=== PATIENT | male | born 1990 | race African-American/Black ===

== ENCOUNTER 2017-01-20 03:30 | Inpatient (IN) | payer MEDICAID, OTHER ==
[~2017-01-20] VITALS: Ht 175.3 cm; Wt 88.9 kg
[2017-01-20] MEDS ORDERED: MAGNESIUM HYDROXIDE SUSP 30 ML CUP PO PRN (06:15)
[2017-01-20] MEDS ORDERED: BENZTROPINE MESYLATE 1 MG TAB PO PRN (06:15)
[2017-01-20] MEDS ORDERED: ACETAMINOPHEN 325 MG TAB PO PRN (06:15)
[2017-01-20] MEDS ORDERED: BENZTROPINE MESYLATE 2 MG/2 ML VIAL IM PRN (06:15)
[2017-01-20] MEDS ORDERED: diphenhydrAMINE HCL 50 MG CAP PO PRN (06:15)
[2017-01-20] MEDS ORDERED: ALUMINUM/MAGNESIUM/SIMETH 30 ML CUP PO PRN (06:15)
[2017-01-20] MEDS ORDERED: LORazepam 2 MG/ML VIAL IM PRN (06:15)
[2017-01-20 06:24] VITALS: BP 135/82; PULSE 54; RESP 18; TEMP 97.6; O2SAT 100
[2017-01-20 08:49] LABS: AUTOMATED NEUTROPHIL # 1.4 TH/MM3 (1.8-7.7); BASOPHIL # 0.1 TH/MM3 (0-0.2); BASOPHIL % 1.4 % (0.0-2.0); EOSINOPHIL # 0.2 TH/MM3 (0-0.4); EOSINOPHIL % 5.8 % (0.0-4.0); HEMATOCRIT 40.9 % (39.0-51.0); HEMO FLAGS DIFF FINAL; LYMPH % 45.6 % (9.0-44.0); LYMPHOCYTE # 1.9 TH/MM3 (1.0-4.8); MEAN CELL VOLUME 77.2 FL (80.0-100.0); MEAN CORPUSCULAR HEMOGLOBIN 25.7 PG (27.0-34.0); MEAN CORPUSCULAR HGB CONC 33.2 % (32.0-36.0); NEUT % 32.2 % (16.0-70.0); PLATELET COUNT 241 TH/MM3 (150-450); RED BLOOD COUNT 5.29 MIL/MM3 (4.50-5.90); RED CELL DISTRIBUTION WIDTH 13.4 % (11.6-17.2); WHITE BLOOD COUNT 4.3 TH/MM3 (4.0-11.0)
[2017-01-20] MEDS: NICOTINE 21 MG/24 HR PATCH T-DERMAL SCH (09:00)
[2017-01-20] MEDS: REMOVE OLD NICOTINE T-DERMAL SCH (09:00)
[2017-01-20 09:10] LABS: ANION GAP 7 MEQ/L (5-15); AST (GOT) 20 U/L (15-37); BICARBONATE 27.8 MEQ/L (21.0-32.0); BLOOD UREA NITROGEN 8 MG/DL (7-18); CHLORIDE 105 MEQ/L (98-107); GLOMERULAR FILTRATION RATE 101 ML/MIN (>89); POTASSIUM 4.1 MEQ/L (3.5-5.1); SODIUM (NA) 140 MEQ/L (136-145)
[2017-01-20 09:21] LABS: ALKALINE PHOSPHATASE 47 U/L (45-117); ALT (GPT) 26 U/L (12-78); CREATINE KINASE 624 U/L (39-308); HDL CHOLESTEROL 32.2 MG/DL (40.0-60.0); LDL CHOLESTEROL 116 MG/DL (0-99); TOTAL BILIRUBIN ADULT 0.8 MG/DL (0.2-1.0)
[2017-01-20 09:36] LABS: CKMB 3.1 NG/ML (0.5-3.6)
--- NOTE | 2017-01-20 10:17 | HHI.HP ---
Provisional Diagnosis Admission Date Jan 20, 2017 at 03:30 [place]. Major Depression, single episode, severe Certification of Person's Competence To Provide Express and Informed Consent I have personally examined Piero Magaña , a person being served at [facility] on, Jan 20, 2017 10:04. Express and informed consent means consent voluntarily given in writing, by a competent person, after sufficient explanation and disclosure of the subject matter involved to enable the person to make a knowing and willful decision without any element of force, fraud, deceit, duress, or other form of constraint or coercion. This person is 18 years of age or older, is not now known to be incompetent to consent to treatment with a guardian advocate, and does not have a health care surrogate or proxy currently making medical treatment decisions. I have found this person to be one of the following: [x] Competent to provide express and informed consent, as defined above, for voluntary admission to this facility and is competent to provide express and informed consent for treatment. He/she has the consistent capacity to make well reasoned, willful, and knowing decisions concerning his or her medical or mental health treatment. The person fully and consistently understands the purpose of the admission for examination/placement and is fully capable of personally exercising all rights assured [place] Incompetent to provide express and informed consent to voluntary admission, and this is incompetent to provide express and informed consent to treatment. The person must be transferred to involuntary status and a petition for a guardian advocate filed with the Circuit Court. [] Refusing to provide express and informed consent to voluntary admission but is competent to provide express and informed consent for treatment. The person must be discharged or transferred to involuntary status. Form shall be completed within 24 hours of a person's arrival at the receiving facility and filed in the clinical record of each person: 1. Admitted on a voluntary basis 2. Permitted to provide express and informed consent to his/her own treatment 3. Allowed to transfer from involuntary to voluntary status 4. Prior to permitting a person to consent to his or her own treatment after having been previously found incompetent to consent to treatment. History of Present Illness Capacity: Has Capacity HPI This is a 26-year-old male admitted last evening for suicidal plans and threats to stab himself with a knife. Apparently he and his have been having marital issues for months and she is now saying she does not want to be with him. The patient therefore threatened to stab himself with a knife. Symptoms of depression include depressed mood, anxiety, social withdrawal, irritability, diminished self-esteem, low energy, suicidal thinking and planning, sleep disturbance, etc. Current stressors include financial stress. The patient works part-time at [employer]. He receives no benefits. He has a and children and states he is unable to provide for their housing and food adequately. He also reports an increasingly acrimonious relationship with his . Although the patient served in the , he is not [place] service connected. This is another source of his anxiety and depression. He has therefore little or no resources for treatment. Review of Systems ROS Limitations: Clinical Condition Except as stated in HPI: all other systems reviewed are Neg Past Psych History Psychological trauma history Patient carries a diagnosis of posttraumatic stress disorder according to him. However he is unable to provide a history of trauma that is consistent with this diagnosis. He does also report a history of depression and anxiety while he was in the . Violence risk - others (6 mos) Minimal. Violence risk - self (6 mos) The patient states he does not wish to harm himself at this time but has thought about suicide repeatedly over the last several days. Substance Abuse History Drugs/Alcohol past 12 months Patient denies any alcohol or drug abuse. He states he may have one or 2 beers on occasion but does not drink daily or even weekly. Denies drug use. Past Family Social History Coded Allergies: No Known Allergies (Unverified , 01/20/17) Past Medical History Denied for systemic illness. No prescription medicines for psychiatric reasons until this admission. Current Medications Medications (Trade) Dose Ordered Sig/Kwadwo Route Start Time Stop Time Status Last Admin (Ativan) 1 mg Q6H PRN PO 01/20/17 06:15 (Ativan Inj) 1 mg Q6H PRN IM 01/20/17 06:15 (Benadryl) 50 mg HS PRN PO 01/20/17 06:15 (Tylenol) 650 mg Q4H PRN PO 01/20/17 06:15 (Milk Of Magnesia Liq) 30 ml DAILY PRN PO 01/20/17 06:15 (Mag-Al Plus Susp Liq) 30 ml Q6H PRN PO 01/20/17 06:15 (Habitrol 21 Mg Patch.24 Hr) 1 patch DAILY T-DERMAL 01/20/17 09:00 (Cogentin) 1 mg Q12H PRN PO 01/20/17 06:15 (Cogentin Inj) 1 mg Q12H PRN IM 01/20/17 06:15 Miscellaneous Information 1 DAILY T-DERMAL 01/20/17 09:00 Family History Positive for depression and anxiety in his mother. Social History Patient came with his family to this area in the last year because his knows people. Patient claims he has no relationships here and that his family lives in [place]. As stated above, he works part-time at [employer] but receives no benefits. Patient's Strengths (min. 2) Verbal and resilient. Physical Exam GENERAL: SKIN: Warm and dry. HEAD: Normocephalic. EYES: No scleral icterus. No injection or drainage. NECK: Supple, trachea midline. No JVD or lymphadenopathy. CARDIOVASCULAR: Regular rate and rhythm without murmurs, gallops, or rubs. RESPIRATORY: Breath sounds equal bilaterally. No accessory muscle use. GASTROINTESTINAL: Abdomen soft, non-tender, nondistended. MUSCULOSKELETAL: No cyanosis, or edema. BACK: Nontender without obvious deformity. No CVA tenderness. Vital Signs Vital Signs Date Time Temp Pulse Resp B/P Pulse Ox O2 Delivery O2 Flow Rate FiO2 01/20/17 06:24 97.6 54 18 135/82 100 Mental Status Examination Speech: Unremarkable Orientation: x3 Memory: Unremarkable Thought Process: Organized, Goal Directed Thought Content: Unremarkable Fund of Knowledge Adequate Hallucination Type: None Attention and Concentration: Good Suicidal Ideation: Yes Previous Suicide Attempts: No Suicidal Plan Remarks Patient continues to describe various plans for committing suicide if things do not improve. Homicidal Ideation: No Previous Homicide Attempts: No Insight: Fair Judgement: WNL Affect: Anxious Affect if Inappropriate: Blunt Mood: Sad, Anxious Motor Activity: Normal gait Assessment & Plan Problem List: (1) Major depression, single episode ICD Code: F32.9 Assessment & Plan Estimated LOS: 5 days Patient will be observed and evaluated for further signs of depression and suicidality. This physician offered and received permission to start the patient on antidepressant medication. Patient had a bad experience with previous psychiatric medicine while in the . This physician provided informed consent for a trial of Wellbutrin XL. Workup also included an EKG and laboratory testing. We will attempt to engage the patient in individual, family and milieu therapies. We will also investigate his ability to be service connected through the [facility] for follow up. His case was discussed with nursing and social work. Request HC Surrog/Guard Advoc?: No Problem Qualifiers (1) Major depression, single episode: Luciaon Stovall MD Jan 20, 2017 10:17
[2017-01-20] MEDS ORDERED: buPROPion HCL 150 MG EXTENDED RELEASE TAB PO ONE (10:30)
[2017-01-20 15:51] LABS: HEMOGLOBIN A1a 0.9 %; HEMOGLOBIN A1b 0.6 %; HEMOGLOBIN F 0.8 %; HEMOGLOBIN LA1C 1.2 %; HEMOGLOBIN P3 2.4 %
[2017-01-20 19:33] VITALS: BP 121/69; PULSE 71; RESP 16; TEMP 98.3; O2SAT 98
[2017-01-21 05:22] VITALS: BP 111/59; PULSE 49; RESP 18; TEMP 97.9; O2SAT 99
[2017-01-21] MEDS: NICOTINE 21 MG/24 HR PATCH T-DERMAL SCH (09:00)
[2017-01-21] MEDS: REMOVE OLD NICOTINE T-DERMAL SCH (09:00)
--- NOTE | 2017-01-21 13:19 | HHI.PYPN ---
Subjective Remarks Patient was seen and case discussed with nursing. Patient is a bright and intelligent young man. Patient is irritable that he is in the hospital and feels that he is different from the other patients and should be let go. Psychoeducation done about the reason for his inpatient admission though patient still is asking for discharge because of disruption to his work. He admits to suicidal thoughts with plan and intent before arriving here. He says he was pacing his room with a knife in his hand and was thinking of where and ways to cut himself but decided to go to the hospital instead. Patient says this was an impulsive act and he was not planning it. Marital problems remain. Today denies depressed mood. Denies suicidal ideation intent or plan Objective Alert: Yes [place]: Person, Place, Date Mood: Oppositional Affect: Blunted Memory Intact: Immediate Hallucinations: Other (denies) Delusions: No Delusion Type: Other Suicidal: Ideation (denies) Homicidal: Ideation (denies) Insight/Judgement Fair Vitals/IOs Vital Signs Date Time Temp Pulse Resp B/P Pulse Ox O2 Delivery O2 Flow Rate FiO2 01/21/17 05:22 97.9 49 18 111/59 99 Assessment & Plan Problem List: (1) Major depression, single episode ICD Code: F32.9 Assessment & Plan Given recent suicidal ideation intent we will continue admission Justification for Cont. Inpt. Patient will decompensate in a less restrictive setting Request HC Surrog/Guard Advoc?: No Problem Qualifiers (1) Major depression, single episode: Eliud Loyola DO Jan 21, 2017 13:19
[2017-01-21 19:51] VITALS: BP 136/68; PULSE 65; RESP 18; TEMP 98.6; O2SAT 97
[2017-01-22 05:45] VITALS: BP 133/58; PULSE 53; RESP 16; TEMP 98.2; O2SAT 99
[2017-01-22] MEDS: NICOTINE 21 MG/24 HR PATCH T-DERMAL SCH (08:38)
[2017-01-22] MEDS: REMOVE OLD NICOTINE T-DERMAL SCH (08:38)
[2017-01-22] MEDS: LORazepam 1 MG TAB PO PRN ×2 (08:50→22:09)
--- NOTE | 2017-01-22 15:09 | HHI.PYPN ---
Subjective Remarks Patient was seen and case discussed with nursing. Patient continues to be perseverative on discharge. Site is poor he minimizes suicide intent before admission. Stressors include desire to leave and get back to his job provide for his family. Fear of eviction. Patient is concerned that he is no longer on Wellbutrin. Records were reviewed and Wellbutrin is not ordered. Today, patient denies suicidal ideations or plan. Affect is blunted and guarded Objective Alert: Yes [place]: Person, Place, Date Mood: Oppositional Affect: Blunted Memory Intact: Immediate Hallucinations: Other (denies) Delusions: No Delusion Type: Other Suicidal: Ideation (denies) Homicidal: Ideation (denies) Insight/Judgement Poor Vitals/IOs Vital Signs Date Time Temp Pulse Resp B/P Pulse Ox O2 Delivery O2 Flow Rate FiO2 01/22/17 05:45 98.2 53 16 133/58 99 Assessment & Plan Problem List: (1) Major depression, single episode ICD Code: F32.9 Assessment & Plan Restart Wellbutrin XL 150 mg daily Justification for Cont. Inpt. Continue current treatment plan Request HC Surrog/Guard Advoc?: No Problem Qualifiers (1) Major depression, single episode: Eliud Loyola DO Jan 22, 2017 15:09
[2017-01-22] MEDS ORDERED: buPROPion HCL 150 MG EXTENDED RELEASE TAB PO SCH (16:00)
[2017-01-22] MEDS: buPROPion HCL 75 MG TAB PO SCH (17:12)
[2017-01-22 18:28] VITALS: BP 139/74; PULSE 93; RESP 18; TEMP 98.6; O2SAT 98
[2017-01-23] MEDS: buPROPion HCL 75 MG TAB PO SCH (06:13)
[2017-01-23 06:25] VITALS: BP 100/55; PULSE 63; RESP 16; TEMP 97.9; O2SAT 95
[2017-01-23] MEDS: NICOTINE 21 MG/24 HR PATCH T-DERMAL SCH (08:33)
[2017-01-23] MEDS: REMOVE OLD NICOTINE T-DERMAL SCH (08:33)
--- NOTE | 2017-01-23 12:33 | HHI.DS ---
Psychiatry Discharge Summary Inpatient Psychiatric care?: Yes Advance Directive: No Reason Not Provided: Due to Patient Condition Mental Health AdvanceDirective: No Health Care Proxy: No Admission Admission Date Jan 20, 2017 at 03:30 Admission Diagnosis: (1) Major depression, single episode ICD Code: F32.9 Brief History This is a 26-year-old male admitted last evening for suicidal plans and threats to stab himself with a knife. Apparently he and his have been having marital issues for months and she is now saying she does not want to be with him. The patient therefore threatened to stab himself with a knife. Symptoms of depression include depressed mood, anxiety, social withdrawal, irritability, diminished self-esteem, low energy, suicidal thinking and planning, sleep disturbance, etc. Current stressors include financial stress. The patient works part-time at [employer]. He receives no benefits. He has a and children and states he is unable to provide for their housing and food adequately. He also reports an increasingly acrimonious relationship with his . Although the patient served in the , he is not [place] service connected. This is another source of his anxiety and depression. He has therefore little or no resources for treatment. Tobacco Use In Past 30 Days: No Tobacco Past 30 Days Alcohol Use: Monthly or Less Hospital Course This is a 26-year-old male admitted for major depression, single episode. He participated in individual as well as group and milieu therapies. He will be discharged on Wellbutrin 300 mg per day, which was started during the hospitalization. No procedures or significant laboratory results or consults were needed. He will follow up with his outpatient physician at the [facility] , where he will be connected. Results Blood Pressure 100 / 55 Vital Signs Date Time Temp Pulse Resp B/P Pulse Ox O2 Delivery O2 Flow Rate FiO2 01/23/17 06:25 97.9 63 16 100/55 95 Laboratory Results Test 01/20/17 07:19 Hemoglobin A1c 6.0 % (4.3-6.0) Triglycerides Level 90 MG/DL (42-150) Cholesterol Level 166 MG/DL (120-200) LDL Cholesterol 116 MG/DL (0-99) HDL Cholesterol 32.2 MG/DL (40.0-60.0) Summary of Procedures None. Pending results at discharge: No Medications # of Antipsychotic meds at D/C: 0 Approp Antipsych med options 1 - Minimum of three failed multiple trials of monotherapy. 2 - Documented plan to taper to monotherapy due to previous use of multiple meds OR cross-taper in progress at D/C. 3 - Documentation of augmentation of Clozapine. 4 - Justification other than those listed in allowable values 1-3, document here : Discharge Discharge Date: Jan 23, 2017 Discharge Diagnosis: (1) Major depression, single episode Diagnosis: Principal ICD Code: F32.9 Mental Status Exam at Disch At the time of discharge mental status examination was intact. Patient was not suicidal or homicidal or psychotic and his cognition was good. He was emotionally stable and wanted to be discharged. Pt Condition on Discharge: Stable Discharge Disposition: Discharge Home Discharge Instructions Diet Instructions: As Tolerated, No Restrictions Scheduled Appointment: [place] Appointment Date: Jan 19, 2017 Appointment Time: 07:45am Discharge Time <= 30 minutes Discharge/Advance Care Plan Health Problems: (1) Major depression, single episode Goals to promote your health * To prevent worsening of your condition and complications * To maintain your health at the optimal level Directions to meet your goals Take your medications as prescribed Follow your dietary instruction Follow activity as directed Keep your appointments as scheduled Take your immunizations and boosters as scheduled If your symptoms worsen call your PCP, if no PCP go to Urgent Care Center or Emergency Room For 19/06 questions related to your inpatient stay or results of tests pending at discharge, please contact Dr. Luciano Stovall at Smoking is Dangerous to Your Health. Avoid second hand smoking Problem Qualifiers (1) Major depression, single episode: Qualified Code: F32.4 - Major depressive disorder with single episode, in partial remission Luciano Stovall MD Jan 23, 2017 12:33
[2017-01-23] MEDS ORDERED: BUPR150XL PO (12:48)
== END 2017-01-23 15:45 | disposition home or self-care (01) | DRG 881 ==
LOC: H260 03:30
PROVIDERS: ADMIT Psychiatry & Neurology Psychiatry; ATTEND Psychiatry & Neurology Psychiatry
DX: F32.9 Major depressive disorder, single episode, unspecified (principal)
CPT/HCPCS: 80053; 80061; 82550; 82552; 83036; 84443; 85025; Q0163